=== PATIENT | male | born 1935 | race Caucasian/White ===

== ENCOUNTER → 2016-05-04 | Outpatient (CLI) | payer OTHER, BC ==
[~2016-05-04] MED LIST: ATOR10TA88 PO; CEPH500C PO; LISI5TAB3 PO; SILD1TAB11 PO; SULF500T36 PO
--- NOTE | 2016-05-04 13:49 | DIAGNOSTIC IMAGING REPORT ---
CHEST 2 VIEWS ROUTINE CLINICAL HISTORY: Persistent cough COMPARISON STUDY: No previous studies for comparison. FINDINGS: The chest has an emphysematous configuration. There is bibasal interstitial thickening. The heart is normal in size. There is no lobar consolidation. There is no overt failure.[ IMPRESSION: Bibasal interstitial thickening, likely chronic. No evidence of lobar consolidation Electronically signed by: Jerry Pérez M.D. 05/04/2016 1:48 PM Dictated Date/Time: 05/04/2016 1:47 PM
== END | disposition home or self-care (01) ==
LOC: C.LAB1850 13:34
PROVIDERS: ATTEND Family Medicine Hospice and Palliative Medicine
DX: R05 Cough (principal)

== ENCOUNTER → 2016-07-13 | Outpatient (CLI) | payer OTHER, BC ==
[~2016-07-13] MED LIST changes: +ATOR10TA82 PO; -ATOR10TA88 PO
== END | disposition home or self-care (01) ==
LOC: C.PATHSPEC 17:43
PROVIDERS: ATTEND Plastic Surgery
DX: C44.619 Basal cell carcinoma of skin of left upper limb, including shoulder (principal)

== ENCOUNTER → 2016-09-04 | Outpatient (CLI) | payer OTHER, BC ==
[2016-09-04 12:51] LABS: BASO % 0.4 %; BASO ABS # 0.04 K/uL (0-0.2); COMPLETE YES; EOS % 0.6 %; HEMATOCRIT 46.6 % (42-52); IG% 1.3 %; LYMPH % 24.4 %; LYMPH ABS # 2.63 K/uL (1.2-3.4); MEAN CELL VOLUME 92.5 fL (80-100); MEAN CORPUSCULAR HEMOGLOBIN 30.2 pg (25-34); MEAN CORPUSCULAR HGB CONC 32.6 g/dl (32-36); MEAN PLATELET VOLUME 8.5 fL (7.4-10.4); MONO % 14.7 %; NEUT % 58.6 %; PLATELET COUNT 337 K/uL (130-400); RED BLOOD COUNT 5.04 M/uL (4.7-6.1); WHITE BLOOD COUNT 10.78 K/uL (4.8-10.8)
[2016-09-04 14:37] LABS: LYME DISEASE AB IGM NEG (NEG)
[2016-09-04 14:45] LABS: LYME DISEASE AB IGG POS (NEG)
[2016-09-08 10:21] LABS: 18KDIGG BAND REACTIVE (NONREACTIVE); 23KDIGG BAND NONREACTIVE (NONREACTIVE); 23KDIGM BAND NONREACTIVE (NONREACTIVE); 28KDIGG BAND REACTIVE (NONREACTIVE); 30KDIGG BAND REACTIVE (NONREACTIVE); 39KDIGG BAND REACTIVE (NONREACTIVE); 39KDIGM BAND NONREACTIVE (NONREACTIVE); 41KDIGG BAND NONREACTIVE (NONREACTIVE); 41KDIGM BAND NONREACTIVE (NONREACTIVE); 45KDIGG BAND REACTIVE (NONREACTIVE); 58KDIGG BAND REACTIVE (NONREACTIVE); 66KDIGG BAND REACTIVE (NONREACTIVE); 93KDIGG BAND REACTIVE (NONREACTIVE)
== END ==
LOC: C.LAB1850 11:38
PROVIDERS: ATTEND Dermatology
DX: W57.XXXA Bitten or stung by nonvenomous insect and other nonvenomous arthropods, initial encounter (principal); X58.XXXA Exposure to other specified factors, initial encounter

== ENCOUNTER → 2016-12-07 | Outpatient (CLI) | payer OTHER, BC ==
[~2016-12-07] MED LIST changes: -ATOR10TA82 PO; +ATOR10TA88 PO
== END | disposition home or self-care (01) ==
LOC: C.MAMM 11:03
PROVIDERS: ATTEND Family Medicine
DX: M85.9 Disorder of bone density and structure, unspecified (principal)

== ENCOUNTER → 2017-03-02 | Outpatient (CLI) | payer OTHER, BC ==
[~2017-03-02] MED LIST changes: +ATOR10TA82 PO; -ATOR10TA88 PO
--- NOTE | 2017-03-02 10:26 | DIAGNOSTIC IMAGING REPORT ---
(RENAL)RETROPERITON COMP HISTORY: Renal insufficiency CHRONIC KIDNEY DISEASE COMPARISON: None. FINDINGS: Right kidney: Maximum dimension 10.8 cm. No evidence for hydronephrosis Normal corticomedullary differentiation and cortical thickness. Left kidney: Maximum dimension 9.6 cm. No evidence for hydronephrosis. Normal corticomedullary differentiation and cortical thickness. Bladder: No bladder wall thickening. The bilateral ureteral jets were identified. IMPRESSION: Normal renal ultrasound. The above report was generated using voice recognition software. It may contain grammatical, syntax or spelling errors. Electronically signed by: Elmo Levin M.D. 03/02/2017 10:25 AM Dictated Date/Time: 03/02/2017 10:24 AM
== END | disposition home or self-care (01) ==
LOC: C.ULTR 09:56
PROVIDERS: ATTEND Family Medicine
DX: N18.9 Chronic kidney disease, unspecified (principal)

== ENCOUNTER 2023-09-10 12:59 | Inpatient (IN) ==
--- NOTE | 2023-09-10 13:19 | Emergency Department Note ---
Impression & Plan Closed fracture of left superior pubic ramus, Fall ED Provider Note NAME: GAGE COBIAN AGE: 88 SEX: M : 1935 ARRIVES VIA: Ambulance INFORMANT: Patient, EMS, the patient's daughter ED PROVIDER(S): Oracio Paris DO CHIEF COMPLAINT: Hip pain HPI: The patient is an 88-year-old male who presented to the emergency department for an evaluation after a fall over the weekend. He was seen in our facility initially. He was diagnosed with a superior ramus fracture of his left hemipelvis. He has been unable to walk at home. Has been taking the pain medication with only minimal relief of his symptoms. His daughter called 911 today concerned that he was not doing well at home and wanted him to be evaluated for possible placement and rehab. The patient denies having any head injury or headache. He denies having any neck pain or back pain. The patient was not seen by his family doctor for the symptoms. ROS: See above HPI for pertinent positives & negatives. A total of 10 systems reviewed and were otherwise negative. PAST MEDICAL HISTORY: See Below PAST SURGICAL HISTORY: See Below FAMILY HISTORY: See Below SOCIAL HISTORY: See Below HOME MEDICATIONS: See Below ALLERGIES: See Below VITALS: See Below PHYSICAL EXAMINATION: GENERAL: The patient is awake and alert. He is very anxious and appears to be uncomfortable. EYES: The conjunctivae are clear. The pupils are round and reactive. EARS, NOSE, MOUTH AND THROAT: The nose is without any evidence of any deformity. NECK: The neck is nontender and supple. RESPIRATORY: Normal respiratory effort is noted there is no evidence of wheezing rhonchi or rales CARDIOVASCULAR: Regular rate and rhythm noted there no murmurs rubs or gallops normal S1 normal S2. GASTROINTESTINAL: The abdomen is soft. Abdomen is nontender. BACK: No midline tenderness or or step-off noted range of motion in flexion extension as well as rotation no signs of muscle spasm noted MUSCULOSKELETAL/EXTREMITIES: There is no shortening of either lower extremity. There is no external rotation. Patient does resist range of motion testing of the left hip. SKIN: There is no obvious evidence of any rash. There are no petechiae, pallor or cyanosis noted. Pulses are symmetric in both feet. NEUROLOGIC: Patient is awake alert and oriented x3 MEDICAL DECISION MAKING: The patient is an 88-year-old male who presented to the emergency department for an evaluation of left hip pain. The patient was seen in our facility recently for similar complaints. He had a fall and suffered a left superior ramus fracture. The patient was not able to ambulating with pain medication at home. He was brought to the emergency department by ambulance. The family was concerned and felt that he might require inpatient management and referral to rehab. I discussed the patient's laboratory and radiographic studies with him and his family member. There does not appear to be much change in the previously noted pubic rami fracture. I discussed his condition with the on- call [facility] hospitalist. They have agreed to evaluate the patient in the emergency department for further management and disposition. Triage Nursing notes reviewed. Prior medical records reviewed Vital Signs: reviewed and remarkable for no significant abnormalities Differential diagnosis: Fracture, subluxation, dislocation, contusion, ligamentous injury, neurovascular, compartment syndrome, rhabdomyolysis, as well as other pathologies. ER treatment provided: See below Diagnostics interpreted by me: ECG: EKG was obtained in the emergency department. My interpretation is normal sinus rhythm at 98 bpm. PVCs were noted. There is no acute ST segment abnormalities noted. No previous tracing was available. Cardiac Monitoring: An order was placed for continuous cardiac monitoring. The monitor shows a rate of 72 bpm with sinus rhythm. Laboratory studies: As stated above and show below. Imaging studies: See below. Radiographic imaging was reviewed by myself Consultation(s): I discussed this case with Dr. Gaona who is on-call for the [facility] group. Past Med/Surg History Problem List (Updated 09/10/23 @ 18:51 by Oracio Paris DO) Fall (Acute) Closed fracture of left superior pubic ramus (Acute) Alcohol use Elevated troponin Ambulatory dysfunction Closed fracture of pubic ramus (Acute) Pyloric stenosis High cholesterol High blood pressure Prostate cancer screening Benign localized prostatic hyperplasia with lower urinary tract symptoms (LUTS) Neoplasm of uncertain behavior of skin (Acute) Eustachian tube dysfunction (Acute) Hearing loss (Acute) Impotence, organic (Acute) Laryngopharyngeal reflux (Acute) Left inguinal hernia (Acute) Nocturia (Acute) Medical History 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 History of basal cell carcinoma Lyme disease Surgical History Hx of tonsillectomy S/P gastric surgery Family History Father Kidney stones Mother Breast cancer Other Cardiac disorder Diabetes Social History Smoking Status: Smoker, status unknown packs per day: 0.5; Hx Alcohol Use: Yes Alcohol type: beer and wine Alcohol Intake Frequency: 4 or More x per/Week Hx Substance Use: No Preferred Language: Cymraes marital status: current occupational status: retired How many Children do You have: 3 Feels Safe at Home: Yes during the past year weight has: remained stable Allergies Allergies Allergy/AdvReac Type Severity Reaction Status Date / Time Sulfa (Sulfonamide Allergy Unknown CAN'T Verified 09/10/23 16:34 Antibiotics) REMEMBER Asacol Allergy Intermediate MOUTH Uncoded 09/10/23 16:34 ULCERATED Home Meds Home Medications Medication Instructions Recorded Confirmed omeprazole 20 mg capsule,delayed 20 mg PO DAILY 12/20/18 09/10/23 release melatonin 5 mg capsule 5 mg PO HS PRN Sleep 10/18/21 09/10/23 rosuvastatin 20 mg tablet 20 mg PO DAILY 10/18/21 09/10/23 cholecalciferol (vitamin D3) 25 0 mcg PO DAILY 09/10/23 09/10/23 mcg (1,000 unit) capsule (Vitamin D3) cyanocobalamin (vitamin B-12) 1,000 mcg PO DAILY 09/10/23 09/10/23 1,000 mcg tablet (Vitamin B-12) thiamine HCl (vitamin B1) 100 mg 100 mg PO DAILY 09/10/23 09/10/23 tablet (Vitamin B-1) vit C 250 mg-vit E 90 mg-zinc 40 1 tab PO BID 09/10/23 09/10/23 mg-copper 1 [id number]-nirulk capsule (PreserVision AREDS-2) Previous Rx's Medication Instructions Recorded silodosin 8 mg capsule 8 mg PO DAILY #90 caps 06/22/23 tadalafil 5 mg tablet 20 mg (4 x 5 mg) PO DAILY PRN 06/22/23 sexual activity #30 tabs oxycodone 5 mg tablet 5 mg PO Q8H PRN pain #31 tabs 09/08/23 Results & Data (ED) Vital Signs Vital Signs - 24 hr 09/10/23 13:02 09/10/23 13:06 09/10/23 13:12 Temperature 36.6 C Temperature Source Oral Pulse Rate 97 H 97 H 93 H Pulse Rate [Apical] Pulse Rhythm Irregular Respiratory Rate 16 16 Respiratory Depth Normal Blood Pressure 132/72 Blood Pressure [Left Arm] Blood Pressure Mean 92 Blood Pressure Mean [Left Arm] Pulse Oximetry 92 90 Oxygen Delivery Method Room Air Room Air Sepsis Recent Fever Within 48 Hours No Sepsis New/Unexplained Change in Mental Status No Sepsis Action Taken by Nursing No Action Required 09/10/23 14:51 Temperature Temperature Source Pulse Rate Pulse Rate [Apical] 72 Pulse Rhythm Respiratory Rate 14 Respiratory Depth Blood Pressure Blood Pressure [Left Arm] 132/72 Blood Pressure Mean Blood Pressure Mean [Left Arm] 92 Pulse Oximetry 97 Oxygen Delivery Method Room Air Sepsis Recent Fever Within 48 Hours Sepsis New/Unexplained Change in Mental Status Sepsis Action Taken by [facility] Medications Current Medication List: was personally reviewed by me Laboratory Data Attestation: I reviewed the patient's lab results. 09/10/23 13:08 09/10/23 13:08 Lab Results 09/10/23 09/10/23 Range/Units 13:08 15:38 WBC 12.13 H (4.8-10.8) K/ul RBC 3.91 L (4.70-6.10) M/uL Hgb 12.2 L (14.0-18.0) g/dl Hct 36.6 L (42.0-52.0) % MCV 93.6 (80.0-100.0) fL MCH 31.2 (25.0-34.0) pg MCHC 33.3 (32.0-36.0) g/dL RDW Std Deviation 44.2 (36.4-46.3) fL RDW Coeff of Maria Elena 13.0 (11.5-14.5) % Plt Count 206 (130-400) K/uL MPV 8.6 L (9.4-12.4) fL Immature Gran % (Auto) 2.3 % Neut % (Auto) 70.5 % Lymph % (Auto) 15.6 % [place] % (Auto) 11.1 % Eos % (Auto) 0.2 % Baso % (Auto) 0.3 % Neut # (Auto) 8.55 H (1.40-6.50) K/uL Lymph # (Auto) 1.89 (1.20-3.40) K/uL [place] # (Auto) 1.35 H (0.11-0.59) K/uL Eos # (Auto) 0.02 (0.00-0.50) K/uL Baso # (Auto) 0.04 (0.00-0.20) K/uL Immature Gran # (Auto) 0.28 H (0.01-0.20) K/uL PT 11.6 (9.0-12.0) Seconds INR 1.1 (0.9-1.1) APTT 29 (21-31) Seconds PTT Ratio 1.1 Sodium 134 L (136-145) mmol/L Potassium 4.0 (3.5-5.1) mmol/L Chloride 100 (98-107) mmol/L Carbon Dioxide 27 (21-32) mmol/L Anion Gap 7 (3-11) BUN 20 (6-23) mg/dl Creatinine 1.27 (0.6-1.4) mg/dl Est Cr Clr Drug Dosing 41.3 ml/min Est GFR ( Amer) 58.9 ml/min Est GFR (Non-Af Amer) 50.8 ml/min BUN/Creatinine Ratio 15.7 (10-20) Glucose 139 H (70-99(Fasting)) mg/dl Calcium 9.2 (8.6-10.3) mg/dl Total Bilirubin 0.9 (0.2-1.0) mg/dl AST 31 (13-39) U/L ALT 27 (7-52) U/L Alkaline Phosphatase 53 (34-104) U/L Troponin I High Sens 27.4 H 26.1 H (0-20) pg/ml Total Protein 7.2 (6.0-8.3) gm/dl Albumin 3.9 (3.4-5.0) gm/dl Globulin 3.3 (2.5-4.0) gm/dl Albumin/Globulin Ratio 1.2 (0.9-2) Lipase 9 L (11-82) U/L Administered Medications Discontinued Medications Morphine Sulfate (Morphine Sulfate 4 Mg/Ml 1 Ml Carp\Vial) 4 mg IV NOW STA Stop: 09/10/23 13:06 Last Admin: 09/10/23 13:24 Dose: 4 mg Documented By: KV Ondansetron HCl (Ondansetron Inj 2 Mg/Ml 2 Ml Vial) 4 mg IV NOW STA Stop: 09/10/23 13:06 Last Admin: 09/10/23 13:24 Dose: 4 mg Documented By: KV Imaging Data Attestation: I personally reviewed and interpreted this imaging study as follows: My Impression: 1 view chest x-ray was obtained in the emergency department. My interpretation is no free air or definite infiltrate, final report below. X-ray of the left hip and pelvis was obtained in the emergency department. My interpretation is superior pubic ramus fracture, no other definite fracture noted, final report below. Radiologist's Impression: Chest X-Ray 09/10/23 13:05 XR chest 1V portable CLINICAL HISTORY: Chest pain, nonspecific TECHNIQUE: Single frontal radiograph of the chest was obtained. Comparison: None available at the time of this dictation. FINDINGS: No lines and tubes are seen. Cardiomegaly is noted. The aortic arch is calcified. Prominence and cephalization of the vasculature is seen. No evidence of pleural effusion or pneumothorax. IMPRESSION: Cardiomegaly and mild pulmonary edema. ACT 112: Negative or not required by law. Electronically signed by: Refugio Warner M.D. 09/10/2023 2:34 PM Hip/Pelvis X-Ray 09/10/23 13:05 XR hip LT 2V w pelvis HISTORY: 88 years-old Male fall acute pelvic pain status post fall COMPARISON: Left femur radiographs 09/08/2023 TECHNIQUE: AP view of the pelvis with 2 views of left hip FINDINGS: Moderate osteoarthritis of the hips. Demineralized appearance of the bones. Moderate degeneration of the SI joints. Acute comminuted fractures of the left superior pubic ramus demonstrate displacement measuring up to 8 mm. This is unchanged. Acute mildly displaced left inferior pubic ramus fracture was not appreciated on the prior study. No additional acute fracture or dislocation identified. IMPRESSION: Acute mildly displaced left pelvic ring fractures. The inferior pubic ring fracture was not clearly seen on the prior study. ACT 112: Negative or not required by law. The above report was generated using voice recognition software. It may contain grammatical, syntax or spelling errors. Electronically signed by: Bennie Paniagua M.D. 09/10/2023 2:[address] 09/10/23 15:46 CT SCAN OF THE CERVICAL SPINE CLINICAL HISTORY: Fall. COMPARISON STUDY: Cervical spine radiographs dated 10/06/2015. TECHNIQUE: CT scan of the cervical spine is performed from the skull base to the upper thoracic spine. Images are reviewed in the axial, sagittal, and coronal planes. IV contrast was not administered for this examination. A dose lowering technique was utilized adhering to the principles of ALARA. FINDINGS: Skeletal structures: The skeletal structures are osteopenic. There is no evidence of fracture or subluxation involving the cervical spine. Vertebral body height is maintained. There is minimal anterolisthesis at C3-C4, C4-C5, and C7- T1. Alignment is otherwise preserved. There is straightening of the cervical lordosis. Anterior osteophytes are seen throughout. The odontoid process and lateral masses are intact. The atlantoaxial articulation is preserved noting advanced productive degenerative change. The spinous processes appear intact. There is moderate multilevel cervical spondylosis. Uncovertebral and facet arthropathy contribute to neural foraminal narrowing at several levels. Intervertebral discs: There is moderate to severe disc space narrowing at C5-C6 and C6-C7 with associated endplate sclerosis. Mild narrowing is seen at the remaining cervical levels. Central canal: Posterior disc osteophyte complexes at C5-C6 and C6-C7 likely contribute to acquired compromise of the central canal. Soft tissues: The prevertebral and paraspinous soft tissues are within normal limits. There is atherosclerotic calcification of the carotid bulbs. Calvarium: The visualized calvarium at the skull base appears intact. Brain parenchyma: Partially visualized brain parenchyma at the skull base is within normal limits. Sinuses and mastoids: There is trace mucosal thickening within the maxillary antra. The mastoid air cells are well pneumatized. Cerumen is noted in the right external auditory canal. Lung apices: Clear as visualized. IMPRESSION: 1. There is no evidence of cervical spine fracture or subluxation. 2. Osteopenia and spondylotic change as above. ACT 112: Negative or not required by law. Electronically signed by: Young Batista M.D. 09/10/2023 5:[address] 09/10/23 15:46 CT SCAN OF THE BRAIN WITHOUT IV CONTRAST CLINICAL HISTORY: Fall. COMPARISON STUDY: MRI of the brain dated 05/28/2013. TECHNIQUE: Unenhanced axial CT scan of the brain is performed from the vertex to the skull base. A dose lowering technique was utilized adhering to the principles of ALARA. FINDINGS: Brain parenchyma: There is age-related involutional change noting moderate subcortical and periventricular microangiopathic disease. There is no hemorrhage, mass effect, or evidence of acute territorial ischemia by CT criteria. Phan-white matter differentiation is preserved. No extra-axial fluid collection is seen. Ventricles, sulci, cisterns: Prominent secondary to involutional change. Intracranial vasculature: There is atherosclerotic calcification of the cavernous carotid and vertebral artery. Calvarium: The skeletal structures are osteopenic. No depressed calvarial fracture is seen. Sinuses and mastoids: The visualized paranasal sinuses are clear. The mastoid air cells are well pneumatized. Orbits: The bony orbits are grossly intact. There are bilateral ocular lens implants. IMPRESSION: There is no hemorrhage, mass effect, or evidence of acute territorial ischemia by CT criteria. ACT 112: Negative or not required by law. Electronically signed by: Young Batista M.D. 09/10/2023 5:[address] 09/10/23 15:46 CT SCAN OF THE PELVIS WITHOUT IV CONTRAST; CT SCAN OF THE LEFT HIP WITHOUT IV CONTRAST CLINICAL HISTORY: Fall. Pelvic pain. Left hip pain. COMPARISON STUDY: Radiographs of the left hip and bony pelvis dated 09/10/2023. Pelvic CT dated 01/22/2023. TECHNIQUE: CT scan of the pelvis was performed from the pelvic inlet to the proximal femora and CT scan of the left hip was performed from the bony pelvis to the femoral shaft. Images for both examinations are reviewed in the axial, sagittal, and coronal planes. IV contrast was not administered for these examinations. A dose lowering technique was utilized adhering to the principles of ALARA. FINDINGS: The skeletal structures are osteopenic. Again seen are acute, comminuted, and mildly displaced fracture of the left superior and inferior pubic rami with surrounding hemorrhage. The superior pubic rami fracture involves the anterior wall of the left acetabulum. There is likely a subtle nondisplaced fracture of the left sacral ala. The remainder of the bony pelvis appears intact. The proximal femora are maintained. There is no avascular necrosis of the femoral heads. No lytic or blastic lesion is seen. Spondylotic change is noted in the lower lumbar spine. Intramuscular hemorrhage is seen within the left obturator internus. There is trace intrapelvic extraperitoneal hemorrhage. There is also trace retroperitoneal hemorrhage along the anterior aspect of the psoas muscle. The prostate gland is enlarged and heterogeneous. The bladder is distended, and the wall is thickened/trabeculated indicating chronic outlet obstruction. There are bilateral fat-containing groin hernias. 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 Imaged portions of the bowel shows no evidence of obstruction. There is diverticulosis of the imaged colon without CT evidence of acute diverticulitis. No intraperitoneal free air or ascites is seen in the pelvis. IMPRESSION: 1. Again seen are comminuted left pubic rami fractures as above. The superior pubic rami fracture involves the anterior wall of the acetabulum. 2. There is likely a subtle nondisplaced fracture of the left sacral ala. 3. The proximal femora appear intact. 4. There is hemorrhage around the fracture sites, as well as intramuscular hemorrhage within the left obturator internus. 5. There is trace retroperitoneal hemorrhage seen along the anterior aspect of the left psoas muscle. 6. 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 This was better assessed on the 01/22/2023 CT angiogram. 7. Additional findings as above. ACT 112: Negative or not required by law. Dictated: 09/10/2023 5:27 PM Transcribed: 09/10/2023 6:09 PM Theo [id number] Ifrah [id number] Electronically signed by: Young Batista M.D. 09/10/2023 6:42 PM Discharge Plan Visit Data Chief Complaint: Hip Pain Stated Complaint: HIP PAIN ED Provider: Oracio Paris Discharge Problem: Closed fracture of left superior pubic ramus, Fall Patient Disposition: Admitted As Inpatient Discharge Instructions Interventions: ED Discharge Assessment Last Done: 09/10/23 18:17 Forms Stand Alone Forms: Organizer Prescriptions Prescriptions: No Action tadalafil 5 mg tablet 20 mg PO DAILY PRN (Reason: sexual activity) Qty: 30 11RF silodosin 8 mg capsule 8 mg PO DAILY Qty: 90 3RF Rx Instructions: must administer with a meal/food omeprazole 20 mg capsule,delayed release(DR/EC) 20 mg PO DAILY rosuvastatin 20 mg tablet 20 mg PO DAILY melatonin 5 mg capsule 5 mg PO HS PRN (Reason: Sleep) oxycodone 5 mg tablet 5 mg PO Q8H PRN (Reason: pain) Qty: 31 0RF cyanocobalamin (vitamin B-12) [Vitamin B-12] 1,000 mcg Tablet 1,000 mcg PO DAILY thiamine HCl (vitamin B1) [Vitamin B-1] 100 mg Tablet 100 mg PO DAILY cholecalciferol (vitamin D3) [Vitamin D3] 25 mcg (1,000 unit) Capsule 0 mcg PO DAILY Rx Instructions: PT UNSURE OF STRENGTH PreserVision AREDS-2 250-90-40-1 mg Capsule 1 tab PO BID Referrals Referrals: Thanh Melton MD [Primary Care Provider] - Discharge Problem: Closed fracture of left superior pubic ramus Qualifiers: Encounter type: subsequent encounter Fracture healing: with routine healing Q ualified Code(s): S32.512D - Fracture of superior rim of left pubis, subsequent encounter for fracture with routine healing Fall Qualifiers: Encounter type: initial encounter Qualified Code(s): W19.XXXA - Unspecified fall, initial encounter
[2023-09-10] MEDS: ONDANSETRON INJ 2 MG/ML 2 ML VIAL IV STA (13:24)
[2023-09-10] MEDS: MoRPHine SULFATE 4 MG/ML 1 ML CARP\\VIAL IV STA (13:24)
[2023-09-10 13:28] LABS: Basophils # (auto) 0.04 K/uL (0.00-0.20); Basophils % (auto) 0.3 %; Eosinophils # (auto) 0.02 K/uL (0.00-0.50); Eosinophils % (auto) 0.2 %; Hematocrit (blood only) 36.6 % (42.0-52.0); Hemoglobin 12.2 g/dl (14.0-18.0); Immature Granulocytes # (auto) 0.28 K/uL (0.01-0.20); Immature Granulocytes % (auto) 2.3 %; Lymphocytes # (auto) 1.89 K/uL (1.20-3.40); Lymphocytes % (auto) 15.6 %; Mean Corpuscular Hemoglobin 31.2 pg (25.0-34.0); Mean Corpuscular Hgb Conc 33.3 g/dL (32.0-36.0); Mean Corpuscular Volume 93.6 fL (80.0-100.0); Mean Platelet Volume 8.6 fL (9.4-12.4); Monocytes # (auto) 1.35 K/uL (0.11-0.59); Monocytes % (auto) 11.1 %; Neutrophils # (auto) 8.55 K/uL (1.40-6.50); Neutrophils % (auto) 70.5 %; Platelet Count 206 K/uL (130-400); RDW Standard Deviation 44.2 fL (36.4-46.3); Red Blood Count 3.91 M/uL (4.70-6.10); White Blood Count 12.13 K/ul (4.8-10.8)
[2023-09-10 13:44] LABS: Albumin Globulin Ratio 1.2 (0.9-2); Albumin Level 3.9 gm/dl (3.4-5.0); BUN Creatinine Ratio 15.7 (10-20); Bilirubin,Total 0.9 mg/dl (0.2-1.0); Calcium 9.2 mg/dl (8.6-10.3); Creatinine Clr Calc Pharmacy 41.3 ml/min; Est GFR (African American) 58.9 ml/min; Est GFR (Non-African American) 50.8 ml/min; Globulin 3.3 gm/dl (2.5-4.0); Total Protein 7.2 gm/dl (6.0-8.3)
[2023-09-10 13:48] LABS: Troponin I High Sensitivity 27.4 pg/ml (0-20)
[2023-09-10 14:00] LABS: INR 1.1 (0.9-1.1); Partial Thromboplastin Ratio 1.1; Partial Thromboplastin Time 29 Seconds (21-31); Prothrombin Time 11.6 Seconds (9.0-12.0)
--- NOTE | 2023-09-10 14:32 | XRay Report ---
XR hip LT 2V w pelvis HISTORY: 88 years-old Male fall acute pelvic pain status post fall COMPARISON: Left femur radiographs 09/08/2023 TECHNIQUE: AP view of the pelvis with 2 views of left hip FINDINGS: Moderate osteoarthritis of the hips. Demineralized appearance of the bones. Moderate degeneration of the SI joints. Acute comminuted fractures of the left superior pubic ramus demonstrate displacement m easuring up to 8 mm. This is unchanged. Acute mildly displaced left inferior pubic ramus fracture was not appreciated on the prior study. No additional acute fracture or dislocation identified. IMPRESSION: Acute mildly displaced left pelvic ring fractures. The inferior pubic ring fracture was n ot clearly seen on the prior study. ACT 112: Negative or not required by law. The above report was generated using voice recognition software. It may contain grammatical, syntax o r spelling errors. Electronically signed by: Bennie Paniagua M.D. 09/10/2023 2:29 PM
--- NOTE | 2023-09-10 14:36 | XRay Report ---
XR chest 1V portable CLINICAL HISTORY: Chest pain, nonspecific TECHNIQUE: Single frontal radiograph of the chest was obtained. Comparison: None available at the time of this dictation. FINDINGS: No lines and tubes are seen. Cardiomegaly is noted. The aortic arch is calcified. Prominence and ceph alization of the vasculature is seen. No evidence of pleural effusion or pneumothorax. IMPRESSION: Cardiomegaly and mild pulmonary edema. ACT 112: Negative or not required by law. Electronically signed by: Refugio Warner M.D. 09/10/2023 2:34 PM
--- NOTE | 2023-09-10 15:03 | History & Physical Report ---
Date of Service September 10, 2023 Assessment & Plan (1) Closed fracture of pubic ramus: Plan: Patient fell backwards down stairs (approximately 4 steps) while ascending on 09/07 Worsening left hip pain with movement since then Hip/pelvic x-ray revealed acute mildly displaced left pelvic ring fractures Head, C-spine, left hip, lumbar spine, and pelvic CTs ordered, pending Will defer chemical DVT PPx until imaging comes back Acetaminophen as needed for pain 13 Dilaudid IV q4h as needed for breakthrough pain Orthopedics evaluation appreciated A.m. CBC, BMP (2) Ambulatory dysfunction: Plan: PT/OT evaluations appreciated; left nonweightbearing Fall precautions Case management consulted for rehab upon discharge (3) Elevated troponin: Plan: Troponin 27.4 on arrival, repeat pending Clinically, patient denies chest pain, SOB, or pleuritic CP Continuous telemetry monitoring (4) Alcohol use: Plan: Patient reports that he drinks 4+ drinks daily Denies history of alcohol withdrawal or seizures AWSS at risk protocol with Ativan as needed (5) High cholesterol: Plan: Continue rosuvastatin Plan Disposition: Admit to [facility] DNR/DNI Regular diet DVT PPx: Will defer until CT imaging comes back History of Present Illness Chief Complaint: Left hip pain, ambulatory dysfunction Primary Care Provider: Thanh Melton MD Orlin is an 88-year-old male with PMH of nocturia, BPH, pyloric stenosis, HTN, and high cholesterol. He presented via EMS for intractable pain for ambulatory dysfunction on 09/09. He initially fell backwards while ascending a flight of steps on his back deck on 09/07. Patient fell backwards down approximately 4 steps. He denies head strike, LOC. He struck his left elbow, hip, and knee. He reports he is not on blood thinners. He endorses 10/10 pain with all mov ements in the left hip. Pain radiates down the left leg to the knee. He is required help with sitting up, standing, and getting out of bed; has difficulty getting to the bathroom. Patient has been taking oxycodone 5 mg every 8 hours for the pain. He characterizes the pain as a sharp, stabbing pain. He denies any pain on his right side. No prior injuries to the left hip, or surgery/hardware placement. He has not had a fall since 09/07. Patient does not use ambulatory assist devices at baseline, but has been using a walker/wheelchair over the past couple days; as well as a commode for the bathroom. Patient's daughter has been living with him for the past couple days to assist with the pelvic fracture. Patient is a former tobacco cigarette smoker but quit in 1980. He does endorse frequent alcohol use; 4 drinks daily; 1 beer with lunch and Chardonnay/play measures throughout the day. He denies history of alcohol withdrawal or seizures. Patient reports he took all of his regular morning medications today; no recent change in medications. Patient's vitals are stable at time of admission. ED course: Morphine sulfate 4 mg IV Zofran 4 mg IV ROS: Patient endorses lightheadedness with standing (ongoing x 1 year), constipation, frequent urination (which patient attribute to enlarged prostate), left hip pain rad down to the knee, Patient denies fever, chills, night-sweats, POE, changes in vision, chest pain, SOB, chest palpitations, pleuritic CP, cough, abdominal pain, N/V/D, change in urinary/bowel habits, saddle anesthesia, melena, blood in the urine/stool, or numbness/tingling in the left lower leg. Allergies Allergy/AdvReac Type Severity Reaction Status Date / Time Sulfa (Sulfonamide Allergy Unknown CAN'T Verified 09/10/23 16:34 Antibiotics) REMEMBER Asacol Allergy Intermediate MOUTH Uncoded 09/10/23 16:34 ULCERATED Home Medications Medication Instructions Recorded Confirmed Type omeprazole 20 mg capsule,delayed 20 mg PO DAILY 12/20/18 09/10/23 History release melatonin 5 mg capsule 5 mg PO HS PRN Sleep 10/18/21 09/10/23 History rosuvastatin 20 mg tablet 20 mg PO DAILY 10/18/21 09/10/23 History silodosin 8 mg capsule 8 mg PO DAILY #90 caps 06/22/23 09/10/23 Rx tadalafil 5 mg tablet 20 mg (4 x 5 mg) PO DAILY PRN 06/22/23 09/10/23 Rx sexual activity #30 tabs oxycodone 5 mg tablet 5 mg PO Q8H PRN pain #31 tabs 09/08/23 09/10/23 Rx cholecalciferol (vitamin D3) 25 0 mcg PO DAILY 09/10/23 09/10/23 History mcg (1,000 unit) capsule (Vitamin D3) cyanocobalamin (vitamin B-12) 1,000 mcg PO DAILY 09/10/23 09/10/23 History 1,000 mcg tablet (Vitamin B-12) thiamine HCl (vitamin B1) 100 mg 100 mg PO DAILY 09/10/23 09/10/23 History tablet (Vitamin B-1) vit C 250 mg-vit E 90 mg-zinc 40 1 tab PO BID 09/10/23 09/10/23 History mg-copper 1 [id number] capsule (PreserVision AREDS-2) Past Med/Surg History Problem List (Updated 09/10/23 @ 15:52 by Luis Win PA-C) Alcohol use Elevated troponin Ambulatory dysfunction Closed fracture of pubic ramus (Acute) Pyloric stenosis High cholesterol High blood pressure Prostate cancer screening Benign localized prostatic hyperplasia with lower urinary tract symptoms (LUTS) Neoplasm of uncertain behavior of skin (Acute) Eustachian tube dysfunction (Acute) Hearing loss (Acute) Impotence, organic (Acute) Laryngopharyngeal reflux (Acute) Left inguinal hernia (Acute) Nocturia (Acute) Medical History 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 History of basal cell carcinoma Lyme disease Surgical History Hx of tonsillectomy S/P gastric surgery Family History Father Kidney stones Mother Breast cancer Other Cardiac disorder Diabetes Social History Smoking Status: Smoker, status unknown packs per day: 0.5; Hx Alcohol Use: Yes Alcohol type: beer and wine Alcohol Intake Frequency: 4 or More x per/Week Hx Substance Use: No Preferred Language: [place] marital status: current occupational status: retired How many Children do You have: 3 Feels Safe at Home: Yes during the past year weight has: remained stable Review of Systems Review of Systems: See HPI above Physical Exam Physical Exam: General: no acute distress, but acute onset of physical pain with any movements of the left leg; pleasant affect; non-toxic appearing; cooperative; SpO2 97% on 1L NC HEENT: normocephalic, atraumatic; no scleral icterus; PERRLA; moist mucus membrane; vision and hearing intact Neck: supple; no lymphadenopathy; trachea midline Skin: warm, dry without signs of tenting; no cyanosis; superficial abrasion on the left knee and left elbow; no rashes or erythema noted CV: chest wall NTP; RRR; S1/S2 normal; no murmurs/rubs/gallops; pulses intact and symmetric at radial, DP, and PT Lungs: no acute respiratory distress; symmetrical chest wall expansion; clear breath sounds across all lung garvey w/o adventitious sounds; no wheezing ABD: Soft, NTP; BS present; no rebound/guarding; moderate distention and bloating MSK: no tics or fasciculations; patient demonstrates ability to bend the left elbow/supinate and pronate the wrist without difficulty (full active ROM); 5/5 scientific research associate strength bilaterally; pain when bending the left knee or lifting the left hip; left hip is NTP; no signs of bruising or active bleeding on the left hip; no edema noted in the LEs b/l; patient demonstrates ability to wiggle toes bilaterally Neuro: A&Ox3; normal mood and affect; fluent speech; no focal deficits; sensation grossly intact and symmetric in the LEs b/l assessed via light touch Results & Data Results & Data Vital Signs (Past 12 Hours) Vital Signs Temp Pulse Pulse Resp BP BP Pulse Ox 09/10/23 14:51 72 14 132/72 97 09/10/23 13:12 93 H 09/10/23 13:06 97 H 16 90 09/10/23 13:02 36.6 C 97 H 16 132/72 92 O2 Del Method 09/10/23 14:51 Room Air 09/10/23 13:12 09/10/23 13:06 Room Air 09/10/23 13:02 Room Air Laboratory Results Abnormal lab results 09/10/23 Range/Units 13:08 WBC 12.13 H (4.8-10.8) K/ul RBC 3.91 L (4.70-6.10) M/uL Hgb 12.2 L (14.0-18.0) g/dl Hct 36.6 L (42.0-52.0) % MPV 8.6 L (9.4-12.4) fL Neut # (Auto) 8.55 H (1.40-6.50) K/uL [place] # (Auto) 1.35 H (0.11-0.59) K/uL Immature Gran # (Auto) 0.28 H (0.01-0.20) K/uL Sodium 134 L (136-145) mmol/L Glucose 139 H (70-99(Fasting)) mg/dl Troponin I High Sens 27.4 H (0-20) pg/ml Lipase 9 L (11-82) U/L Diagnostic Findings Chest X-Ray 09/10/23 13:05 XR chest 1V portable CLINICAL HISTORY: Chest pain, nonspecific TECHNIQUE: Single frontal radiograph of the chest was obtained. Comparison: None available at the time of this dictation. FINDINGS: No lines and tubes are seen. Cardiomegaly is noted. The aortic arch is calcified. Prominence and cephalization of the vasculature is seen. No evidence of pleural effusion or pneumothorax. IMPRESSION: Cardiomegaly and mild pulmonary edema. ACT 112: Negative or not required by law. Electronically signed by: Refugio Warner M.D. 09/10/2023 2:34 PM Hip/Pelvis X-Ray 09/10/23 13:05 XR hip LT 2V w pelvis HISTORY: 88 years-old Male fall acute pelvic pain status post fall COMPARISON: Left femur radiographs 09/08/2023 TECHNIQUE: AP view of the pelvis with 2 views of left hip FINDINGS: Moderate osteoarthritis of the hips. Demineralized appearance of the bones. Moderate degeneration of the SI joints. Acute comminuted fractures of the left superior pubic ramus demonstrate displacement measuring up to 8 mm. This is unchanged. Acute mildly displaced left inferior pubic ramus fracture was not appreciated on the prior study. No additional acute fracture or dislocation identified. IMPRESSION: Acute mildly displaced left pelvic ring fractures. The inferior pubic ring fracture was not clearly seen on the prior study. ACT 112: Negative or not required by law. The above report was generated using voice recognition software. It may contain grammatical, syntax or spelling errors. Electronically signed by: Bennie Paniagua M.D. 09/10/2023 2:29 PM ECG Additional Comments: ECG revealed sinus rhythm with PACs at 98 bpm; QTc 434 No prior for comparison Code Status & VTE Plan Code Status DNR/DNI VTE Prophylaxis Plan VTE Prophylaxis will be ordered: Yes Supervising Physician Co-Signing Physician Notes I have personally seen, evaluated and examined the patient. I have also personally discussed the management of the patient with the resident physician/NOA and I agree with the exam findings documented in the history and physical examination and the documented assessment and plan unless otherwise stated below. Brief Exam: In general is a pleasant 88-year-old male is accompanied by his daughter at the time of my exam. He interacts appropriately pleasantly. He is alert and oriented x 3 at the time of my exam. HEENT: Normocephalic atraumatic. Heart: Is regular rate and rhythm. Faint 2 out of 6 systolic ejection murmur. This is best heard at the left sternal border. No ectopy or rub. Lungs: Clear bilaterally. Abdomen: Mildly protuberant soft nontender positive bowel sounds. Extremities: He has abrasion over the lateral left quintero region. He has got pretty exquisite tenderness of the left greater trochanter region. Discussed significant pain in the hip and groin region with any type of movement of the extremity. Peripheral pulses are palpable strong and equal x 4. He also admits to some low back discomfort. Assessment/plan: As described above. Will do CTs of the head, cervical spine, spine, pelvis, left hip. Consult orthopedics for the fractured pelvis but will see if there is another occult orthopedic injury on these CAT scan to make further recommendations pending testing results. PG Care Time/CCT Total # of Minutes Spent Total Time Spent with Patient: Total time spent is greater than 50% in coordination of care (as documented) at patient's floor/unit and/or counseling patient: Coding [place] [address] INT INP/OBS CARE 3/75MIN Patient Type Established Medical Decision Making Moderate Complexity Diagnoses Closed fracture of pubic ramus S32.592A Encounter type: initial encounter Laterality: left Ambulatory dysfunction R26.2 Elevated troponin R79.89 Alcohol use Z78.9 High cholesterol E78.00 (1) Closed fracture of pubic ramus Encounter type: initial encounter Laterality: left Qualified Code(s): S32.592A - Other specified fracture of left pubis, initial encounter for closed fracture
--- NOTE | 2023-09-10 17:20 | Electrocardiogram Report ---
Test Reason : Blood Pressure : / mmHG Vent. Rate : 098 BPM Atrial Rate : 098 BPM P-R Int : 150 ms QRS Dur : 080 ms QT Int : 356 ms P-R-T Axes : 031 003 -20 degrees QTc Int : 454 ms Sinus rhythm with Premature atrial complexes Cannot rule out Anterior infarct , age undetermined Abnormal ECG No previous ECGs available Confirmed by Oracio Gordillo ([id number]) on 09/10/2023 5:20:01 PM Referred By: Sami Melton Confirmed By:Oracio Gordillo
--- NOTE | 2023-09-10 17:24 | CT Scan Report ---
CT SCAN OF THE BRAIN WITHOUT IV CONTRAST CLINICAL HISTORY: Fall. COMPARISON STUDY: MRI of the brain dated 05/28/2013. TECHNIQUE: Unenhanced axial CT scan of the brain is performed from the vertex to the skull base. A do se lowering technique was utilized adhering to the principles of ALARA. FINDINGS: Brain parenchyma: There is age-related involutional change noting moderate subcortical and periventri cular microangiopathic disease. There is no hemorrhage, mass effect, or evidence of acute territorial ischemia by CT criteria. Phan-white matter differentiation is preserved. No extra-axial fluid collec tion is seen. Ventricles, sulci, cisterns: Prominent secondary to involutional change. Intracranial vasculature: There is atherosclerotic calcification of the cavernous carotid and vertebr al artery. Calvarium: The skeletal structures are osteopenic. No depressed calvarial fracture is seen. Sinuses and mastoids: The visualized paranasal sinuses are clear. The mastoid air cells are well pneu matized. Orbits: The bony orbits are grossly intact. There are bilateral ocular lens implants. IMPRESSION: There is no hemorrhage, mass effect, or evidence of acute territorial ischemia by CT vicky guzman. ACT 112: Negative or not required by law. Electronically signed by: Young Batista M.D. 09/10/2023 5:22 PM
--- NOTE | 2023-09-10 17:28 | CT Scan Report ---
CT SCAN OF THE CERVICAL SPINE CLINICAL HISTORY: Fall. COMPARISON STUDY: Cervical spine radiographs dated 10/06/2015. TECHNIQUE: CT scan of the cervical spine is performed from the skull base to the upper thoracic spine . Images are reviewed in the axial, sagittal, and coronal planes. IV contrast was not administered fo r this examination. A dose lowering technique was utilized adhering to the principles of ALARA. FINDINGS: Skeletal structures: The skeletal structures are osteopenic. There is no evidence of fracture or subl uxation involving the cervical spine. Vertebral body height is maintained. There is minimal anteroli sthesis at C3-C4, C4-C5, and C7-T1. Alignment is otherwise preserved. There is straightening of the c ervical lordosis. Anterior osteophytes are seen throughout. The odontoid process and lateral masses a re intact. The atlantoaxial articulation is preserved noting advanced productive degenerative change. The spinous processes appear intact. There is moderate multilevel cervical spondylosis. Uncovertebra l and facet arthropathy contribute to neural foraminal narrowing at several levels. Intervertebral discs: There is moderate to severe disc space narrowing at C5-C6 and C6-C7 with associ ated endplate sclerosis. Mild narrowing is seen at the remaining cervical levels. Central canal: Posterior disc osteophyte complexes at C5-C6 and C6-C7 likely contribute to acquired c ompromise of the central canal. Soft tissues: The prevertebral and paraspinous soft tissues are within normal limits. There is athero sclerotic calcification of the carotid bulbs. Calvarium: The visualized calvarium at the skull base appears intact. Brain parenchyma: Partially visualized brain parenchyma at the skull base is within normal limits. Sinuses and mastoids: There is trace mucosal thickening within the maxillary antra. The mastoid air c ells are well pneumatized. Cerumen is noted in the right external auditory canal. Lung apices: Clear as visualized. IMPRESSION: 1. There is no evidence of cervical spine fracture or subluxation. 2. Osteopenia and spondylotic change as above. ACT 112: Negative or not required by law. Electronically signed by: Young Batista M.D. 09/10/2023 5:26 PM
--- NOTE | 2023-09-10 18:44 | CT Scan Report ---
CT SCAN OF THE LUMBAR SPINE WITHOUT IV CONTRAST CLINICAL HISTORY: Recent fall. Known pelvic fractures. COMPARISON STUDY: Abdominal CT dated 01/22/2023. TECHNIQUE: CT scan of the lumbar spine was performed from the lower thoracic spine to the sacrum. Sarah ges are reviewed in the axial, sagittal, and coronal planes. IV contrast was not administered for thi s examination. A dose lowering technique was utilized adhering to the principles of ALARA. CT DOSE: 2761.1 mGy.cm FINDINGS: The skeletal structures are osteopenic. There is no evidence of acute fracture or malalignm ent involving the lumbar spine. Vertebral body height is maintained. There is minimal anterolisthesis at L5-S1. Alignment is otherwise preserved. Hyperlordosis is noted. Anterior and lateral marginal os teophytes are seen throughout. The transverse and spinous processes are intact. There is no spondylol ysis. No lytic or blastic lesion is seen. Facet arthropathy is noted in the lower lumbar region. Ther e is moderate disc space narrowing at L5-S1. Mild disc space narrowing is seen at the remaining lumba r levels. Posterior disc osteophyte complexes are noted at all lumbar levels. There is no CT evidence of high-grade central canal stenosis. There is likely a subtle nondisplaced fracture of the left sac ral ala. Degenerative sclerosis is noted in the sacroiliac joints. There is fatty atrophy of the para spinous musculature. Trace retroperitoneal hemorrhage is seen anterior to the distal left psoas muscl e. There is advanced atherosclerotic calcification of the abdominal aorta. 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 IMPRESSION: 1. There is no evidence of fracture or malalignment involving the lumbar spine. 2. Osteopenia and spondylotic change as above. 3. There is likely a subtle nondisplaced fracture of the left sacral ala. 4. Trace retroperitoneal hemorrhage is seen along the inferior aspect of the left psoas muscle. 5. 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 These were better a ssessed on the 01/22/2023 CT angiogram. ACT 112: Negative or not required by law. Dictated: 09/10/2023 5:38 PM Transcribed: 09/10/2023 6:01 PM Theo [id number] KAVEH_Rishi [id number] Electronically signed by: Young Batista M.D. 09/10/2023 6:43 PM
--- NOTE | 2023-09-10 18:44 | CT Scan Report ---
CT SCAN OF THE PELVIS WITHOUT IV CONTRAST; CT SCAN OF THE LEFT HIP WITHOUT IV CONTRAST CLINICAL HISTORY: Fall. Pelvic pain. Left hip pain. COMPARISON STUDY: Radiographs of the left hip and bony pelvis dated 09/10/2023. Pelvic CT dated 2022. TECHNIQUE: CT scan of the pelvis was performed from the pelvic inlet to the proximal femora and CT sc an of the left hip was performed from the bony pelvis to the femoral shaft. Images for both examinati ons are reviewed in the axial, sagittal, and coronal planes. IV contrast was not administered for the se examinations. A dose lowering technique was utilized adhering to the principles of ALARA. FINDINGS: The skeletal structures are osteopenic. Again seen are acute, comminuted, and mildly displa renée fracture of the left superior and inferior pubic rami with surrounding hemorrhage. The superior p ubic rami fracture involves the anterior wall of the left acetabulum. There is likely a subtle nondis placed fracture of the left sacral ala. The remainder of the bony pelvis appears intact. The proximal femora are maintained. There is no avascular necrosis of the femoral heads. No lytic or blastic lesi on is seen. Spondylotic change is noted in the lower lumbar spine. Intramuscular hemorrhage is seen w ithin the left obturator internus. There is trace intrapelvic extraperitoneal hemorrhage. There is al so trace retroperitoneal hemorrhage along the anterior aspect of the psoas muscle. The prostate gland is enlarged and heterogeneous. The bladder is distended, and the wall is thickened/trabeculated nickie cating chronic outlet obstruction. There are bilateral fat-containing groin hernias. A saccular aneur ysm of the distal abdominal aorta is partially visualized and measures up to 4.8 cm. Imaged portions of the bowel shows no evidence of obstruction. There is diverticulosis of the imaged colon without CT evidence of acute diverticulitis. No intraperitoneal free air or ascites is seen in the pelvis. IMPRESSION: 1. Again seen are comminuted left pubic rami fractures as above. The superior pubic rami fracture inv olves the anterior wall of the acetabulum. 2. There is likely a subtle nondisplaced fracture of the left sacral ala. 3. The proximal femora appear intact. 4. There is hemorrhage around the fracture sites, as well as intramuscular hemorrhage within the left obturator internus. 5. There is trace retroperitoneal hemorrhage seen along the anterior aspect of the left psoas muscle. 6. A saccular aneurysm of the distal abdominal aorta is partially visualized and measures up to 4.8 c m. This was better assessed on the 01/22/2023 CT angiogram. 7. Additional findings as above. ACT 112: Negative or not required by law. Dictated: 09/10/2023 5:27 PM Transcribed: 09/10/2023 6:09 PM Theo [id number] KAVEH_Rishi [id number] Electronically signed by: Young Batista M.D. 09/10/2023 6:42 PM
[2023-09-10] MEDS ORDERED: ACETAMINOPHEN 325 MG TAB PO PRN (20:22)
[2023-09-10] MEDS ORDERED: LORazepam 1 MG in SYRINGE 0.5 ML IV PRN (20:22)
[2023-09-10] MEDS ORDERED: ONDANSETRON INJ 2 MG/ML 2 ML VIAL IV PRN (20:22)
[2023-09-10] MEDS ORDERED: HYDROmorphone INJ 1 MG/ML SYRINGE IV PRN (20:22)
[2023-09-10 21:38] LABS: Hematocrit (blood only) 38.6 % (42.0-52.0); Hemoglobin 12.8 g/dl (14.0-18.0)
[2023-09-10 22:00] LABS: Appearance Urine Clear (Clear); Bacteria Urine Automated None Seen (None Seen); Bilirubin Urine Negative (Negative); Blood Urine Negative (Negative); Color Urine Yellow; Epithelial Cell Urine Auto 0-2 /hpf (0-2); Glucose Urine UA Negative (Negative); Ketones Urine Trace (Negative); Leukocyte Esterase Urine Negative (Negative); Nitrite Urine Negative (Negative); Protein Urine 1+ (Negative); Specific Gravity Urine 1.017 (1.000-1.030); Urobilinogen Urine Negative (Negative); WBC Urine Automated 0-5 /hpf (0-5); pH Urine 5.5 (4.5-7.5)
[2023-09-10] MEDS: ACETAMINOPHEN 1,000 MG/100 ML VIAL IV STA (22:47)
[2023-09-10] MEDS: MELATONIN 3 MG TAB PO PRN (22:47)
--- NOTE | 2023-09-11 07:17 | Orthopedic Consultation ---
Date of Consultation September 11, 2023 Assessment & Plan (1) Closed fracture of left superior pubic ramus: 88-year-old male who sustained a fall while going up steps, consulted in regards to a left pubic ramus fracture. X-rays and CT scan reviewed with patient as well as discussed with Dr. Romano, showing a comminuted left pubic rami fracture, involving the anterior wall of the acetabulum. Discussed care with patient, at this point he can weight-bear as tolerated with the assistance of a walker, will make arrangements for physical therapy to begin working with the patient. He does live with his , did discuss possible rehab placement versus nursing facility for assistance postoperatively. Patient will follow-up in the office with Dr. Romano in 12 to 14 days for repeat radiographs or sooner if he is having any issues. he otherwise has no questions or concerns. patient can call [phone] to schedule appt. (2) Fall: History of Present Illness Reason for Consultation: left pelvic ring fracture Attending Physician: Cat Cui MD History of Present Illness Orlin is a pleasant 88 year old male we are consulted in regarding left pelvic ring fracture. He states that he was walking up a few stairs and was holding on to the rail with his left arm, when he slipped and fell, landing on his left hip. he had immediate pain and was unable to put weight on his left leg. he denies hitting his head, LOC, denies any other injuries. he does have an abrasion over the lateral aspect of his left knee. denies any previous fractures to this area. Allergies Allergy/AdvReac Type Severity Reaction Status Date / Time Sulfa (Sulfonamide Allergy Unknown CAN'T Verified 09/10/23 16:34 Antibiotics) REMEMBER Asacol Allergy Intermediate MOUTH Uncoded 09/10/23 16:34 ULCERATED Home Medications Medication Instructions Recorded Confirmed Type omeprazole 20 mg capsule,delayed 20 mg PO DAILY 12/20/18 09/10/23 History release melatonin 5 mg capsule 5 mg PO HS PRN Sleep 10/18/21 09/10/23 History rosuvastatin 20 mg tablet 20 mg PO DAILY 10/18/21 09/10/23 History silodosin 8 mg capsule 8 mg PO DAILY #90 caps 06/22/23 09/10/23 Rx tadalafil 5 mg tablet 20 mg (4 x 5 mg) PO DAILY PRN 06/22/23 09/10/23 Rx sexual activity #30 tabs oxycodone 5 mg tablet 5 mg PO Q8H PRN pain #31 tabs 09/08/23 09/10/23 Rx cholecalciferol (vitamin D3) 25 0 mcg PO DAILY 09/10/23 09/10/23 History mcg (1,000 unit) capsule (Vitamin D3) cyanocobalamin (vitamin B-12) 1,000 mcg PO DAILY 09/10/23 09/10/23 History 1,000 mcg tablet (Vitamin B-12) thiamine HCl (vitamin B1) 100 mg 100 mg PO DAILY 09/10/23 09/10/23 History tablet (Vitamin B-1) vit C 250 mg-vit E 90 mg-zinc 40 1 tab PO BID 09/10/23 09/10/23 History mg-copper 1 qa-caneiv-yidbzw capsule (PreserVision AREDS-2) Patient History Medical History 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 History of basal cell carcinoma Lyme disease Surgical History Hx of tonsillectomy S/P gastric surgery Family History Father Kidney stones Mother Breast cancer Other Cardiac disorder Diabetes Social History Smoking Status: Former smoker packs per day: 0.5; Hx Alcohol Use: Yes Alcohol type: beer and wine Alcohol Intake Frequency: 4 or More x per/Week Hx Substance Use: No Preferred Language: Montenegrin Communication Ability: Effective Epidemiology Investigator Required: No Beliefs That Will Affect Care: None marital status: Current Living Situation: Spouse and Family current occupational status: retired How many Children do You have: 3 Other Information That Helps Us Care for You: No Feels Safe at Home: Yes Safety Concerns: Feels Safe At This Time during the past year weight has: remained stable Assistive Devices: Glasses and Walker Review of Systems Constitutional: no fever and no chills Respiratory: no cough and no dyspnea Cardiovascular: no chest pain, no dyspnea and no orthopnea Gastrointestinal: no abdominal pain, no nausea and no vomiting Physical Exam Physical Exam: Vital Signs Temp 36.6 C 09/11/23 07:12 Pulse 69 09/11/23 07:12 Resp 16 09/11/23 07:12 BP 118/68 09/11/23 07:12 Pulse Ox 97 09/11/23 07:12 O2 Del Method Room Air 09/11/23 07:12 Intake & Output 09/10/23 09/11/23 09/11/23 18:59 06:59 18:59 Intake Total 560 / 560 Output Total 850 / 850 Balance -290 / -290 Weight 79.2 kg 79.2 kg Intake: IV 100 / 100 Acetaminophen 1,000 mg In 100 100 / 100 ml @ 400 mls/h r IV NOW STA Rx#: [id number] Oral 460 / 460 Output: Urine Amount (Ca theter) 850 / 850 Haynes/Indwelli ng 850 / 850 Other: Weight Measureme nt Method Built in [facility] Built in [facility] Musculoskeletal: Pelvis and left lower extremity: No obvious deformities noted, he is neurovascularly intact distally, DP pulse palpable. Calf is soft and nontender. He has no discomfort with gentle log roll of the left leg, he does have pain with compression of the pelvis as well as some mild tenderness over the lateral aspect of his left hip. gentle knee ROM has no discomfort. does has a small abrasion noted along the lateral aspect of his knee as well. Results & Data Vital Signs (Past 12 Hours) Vital Signs Temp Pulse Pulse Resp BP Pulse Ox O2 Del Method 09/11/23 07:12 36.6 C 69 16 118/68 97 Room Air 09/11/23 07:00 67 09/11/23 03:42 36.5 C 75 18 125/73 93 Room Air 09/10/23 23:03 Room Air 09/10/23 22:14 36.8 C 88 18 164/81 H 94 Room Air 09/10/23 22:05 98 H 09/10/23 21:32 83 149/104 H 96 Room Air 09/10/23 20:57 O2 Del Method 09/11/23 07:12 09/11/23 07:00 09/11/23 03:42 09/10/23 23:03 09/10/23 22:14 09/10/23 22:05 09/10/23 21:32 09/10/23 20:57 Room Air Laboratory Results Laboratory Results WBC 12.13 K/ul (4.8-10.8) H 09/10/23 13:08 RBC 3.91 M/uL (4.70-6.10) L 09/10/23 13:08 Hgb 12.8 g/dl (14.0-18.0) L 09/10/23 21:10 Hct 38.6 % (42.0-52.0) L 09/10/23 21:10 MCV 93.6 fL (80.0-100.0) 09/10/23 13:08 MCH 31.2 pg (25.0-34.0) 09/10/23 13:08 MCHC 33.3 g/dL (32.0-36.0) 09/10/23 13:08 RDW Std Deviation 44.2 fL (36.4-46.3) 09/10/23 13:08 RDW Coeff of Maria Elena 13.0 % (11.5-14.5) 09/10/23 13:08 Plt Count 206 K/uL (130-400) 09/10/23 13:08 MPV 8.6 fL (9.4-12.4) L 09/10/23 13:08 Immature Gran % (Auto) 2.3 % 09/10/23 13:08 Neut % (Auto) 70.5 % 09/10/23 13:08 Lymph % (Auto) 15.6 % 09/10/23 13:08 Lincoln % (Auto) 11.1 % 09/10/23 13:08 Eos % (Auto) 0.2 % 09/10/23 13:08 Baso % (Auto) 0.3 % 09/10/23 13:08 Neut # (Auto) 8.55 K/uL (1.40-6.50) H 09/10/23 13:08 Lymph # (Auto) 1.89 K/uL (1.20-3.40) 09/10/23 13:08 Lincoln # (Auto) 1.35 K/uL (0.11-0.59) H 09/10/23 13:08 Eos # (Auto) 0.02 K/uL (0.00-0.50) 09/10/23 13:08 Baso # (Auto) 0.04 K/uL (0.00-0.20) 09/10/23 13:08 Immature Gran # (Auto) 0.28 K/uL (0.01-0.20) H 09/10/23 13:08 PT 11.6 Seconds (9.0-12.0) 09/10/23 13:08 INR 1.1 (0.9-1.1) 09/10/23 13:08 APTT 29 Seconds (21-31) 09/10/23 13:08 PTT Ratio 1.1 09/10/23 13:08 Sodium 134 mmol/L (136-145) L 09/10/23 13:08 Potassium 4.0 mmol/L (3.5-5.1) 09/10/23 13:08 Chloride 100 mmol/L (98-107) 09/10/23 13:08 Carbon Dioxide 27 mmol/L (21-32) 09/10/23 13:08 Anion Gap 7 (3-11) 09/10/23 13:08 BUN 20 mg/dl (6-23) 09/10/23 13:08 Creatinine 1.27 mg/dl (0.6-1.4) 09/10/23 13:08 Est Cr Clr Drug Dosing 41.3 ml/min 09/10/23 13:08 Est GFR ( Amer) 58.9 ml/min 09/10/23 13:08 Est GFR (Non-Af Amer) 50.8 ml/min 09/10/23 13:08 BUN/Creatinine Ratio 15.7 (10-20) 09/10/23 13:08 Glucose 139 mg/dl (70-99(Fasting)) H 09/10/23 13:08 Calcium 9.2 mg/dl (8.6-10.3) 09/10/23 13:08 Total Bilirubin 0.9 mg/dl (0.2-1.0) 09/10/23 13:08 AST 31 U/L (13-39) 09/10/23 13:08 ALT 27 U/L (7-52) 09/10/23 13:08 Alkaline Phosphatase 53 U/L (34-104) 09/10/23 13:08 Troponin I High Sens 26.1 pg/ml (0-20) H 09/10/23 15:38 Total Protein 7.2 gm/dl (6.0-8.3) 09/10/23 13:08 Albumin 3.9 gm/dl (3.4-5.0) 09/10/23 13:08 Globulin 3.3 gm/dl (2.5-4.0) 09/10/23 13:08 Albumin/Globulin Ratio 1.2 (0.9-2) 09/10/23 13:08 Lipase 9 U/L (11-82) L 09/10/23 13:08 Urine Color Yellow 09/10/23 21:30 Urine Appearance Clear (Clear) 09/10/23 21:30 Urine pH 5.5 (4.5-7.5) 09/10/23 21:30 Ur Specific Murray 1.017 (1.000-1.030) 09/10/23 21:30 Urine Protein 1+ (Negative) H 09/10/23 21:30 Urine Glucose (UA) Negative (Negative) 09/10/23 21:30 Urine Ketones Trace (Negative) H 09/10/23 21:30 Urine Blood Negative (Negative) 09/10/23 21:30 Urine Nitrite Negative (Negative) 09/10/23 21:30 Urine Bilirubin Negative (Negative) 09/10/23 21:30 Urine Urobilinogen Negative (Negative) 09/10/23 21:30 Ur Leukocyte Esterase Negative (Negative) 09/10/23 21:30 Urine WBC (Auto) 0-5 /hpf (0-5) 09/10/23 21:30 Urine RBC (Auto) 3-5 /hpf (0-2) H 09/10/23 21:30 U Hyaline Cast (Auto) 3-5 /lpf (0-2) H 09/10/23 21:30 U Epithel Cells (Auto) 0-2 /hpf (0-2) 09/10/23 21:30 Urine Bacteria (Auto) None Seen (None Seen) 09/10/23 21:30 Impressions Chest X-Ray 09/10/23 13:05 XR chest 1V portable CLINICAL HISTORY: Chest pain, nonspecific TECHNIQUE: Single frontal radiograph of the chest was obtained. Comparison: None available at the time of this dictation. FINDINGS: No lines and tubes are seen. Cardiomegaly is noted. The aortic arch is calcified. Prominence and cephalization of the vasculature is seen. No evidence of pleural effusion or pneumothorax. IMPRESSION: Cardiomegaly and mild pulmonary edema. ACT 112: Negative or not required by law. Electronically signed by: Refugio Warner M.D. 09/10/2023 2:34 PM Hip/Pelvis X-Ray 09/10/23 13:05 XR hip LT 2V w pelvis HISTORY: 88 years-old Male fall acute pelvic pain status post fall COMPARISON: Left femur radiographs 09/08/2023 TECHNIQUE: AP view of the pelvis with 2 views of left hip FINDINGS: Moderate osteoarthritis of the hips. Demineralized appearance of the bones. Moderate degeneration of the SI joints. Acute comminuted fractures of the left superior pubic ramus demonstrate displacement measuring up to 8 mm. This is unchanged. Acute mildly displaced left inferior pubic ramus fracture was not appreciated on the prior study. No additional acute fracture or dislocation identified. IMPRESSION: Acute mildly displaced left pelvic ring fractures. The inferior pubic ring fracture was not clearly seen on the prior study. ACT 112: Negative or not required by law. The above report was generated using voice recognition software. It may contain grammatical, syntax or spelling errors. Electronically signed by: Bennie Paniagua M.D. 09/10/2023 2:[address] 09/10/23 15:46 CT SCAN OF THE CERVICAL SPINE CLINICAL HISTORY: Fall. COMPARISON STUDY: Cervical spine radiographs dated 10/06/2015. TECHNIQUE: CT scan of the cervical spine is performed from the skull base to the upper thoracic spine. Images are reviewed in the axial, sagittal, and coronal planes. IV contrast was not administered for this examination. A dose lowering technique was utilized adhering to the principles of ALARA. FINDINGS: Skeletal structures: The skeletal structures are osteopenic. There is no evidence of fracture or subluxation involving the cervical spine. Vertebral body height is maintained. There is minimal anterolisthesis at C3-C4, C4-C5, and C7- T1. Alignment is otherwise preserved. There is straightening of the cervical lordosis. Anterior osteophytes are seen throughout. The odontoid process and lateral masses are intact. The atlantoaxial articulation is preserved noting advanced productive degenerative change. The spinous processes appear intact. There is moderate multilevel cervical spondylosis. Uncovertebral and facet arthropathy contribute to neural foraminal narrowing at several levels. Intervertebral discs: There is moderate to severe disc space narrowing at C5-C6 and C6-C7 with associated endplate sclerosis. Mild narrowing is seen at the remaining cervical levels. Central canal: Posterior disc osteophyte complexes at C5-C6 and C6-C7 likely contribute to acquired compromise of the central canal. Soft tissues: The prevertebral and paraspinous soft tissues are within normal limits. There is atherosclerotic calcification of the carotid bulbs. Calvarium: The visualized calvarium at the skull base appears intact. Brain parenchyma: Partially visualized brain parenchyma at the skull base is within normal limits. Sinuses and mastoids: There is trace mucosal thickening within the maxillary antra. The mastoid air cells are well pneumatized. Cerumen is noted in the right external auditory canal. Lung apices: Clear as visualized. IMPRESSION: 1. There is no evidence of cervical spine fracture or subluxation. 2. Osteopenia and spondylotic change as above. ACT 112: Negative or not required by law. Electronically signed by: Young Batista M.D. 09/10/2023 5:[address] 09/10/23 15:46 CT SCAN OF THE BRAIN WITHOUT IV CONTRAST CLINICAL HISTORY: Fall. COMPARISON STUDY: MRI of the brain dated 05/28/2013. TECHNIQUE: Unenhanced axial CT scan of the brain is performed from the vertex to the skull base. A dose lowering technique was utilized adhering to the principles of ALARA. FINDINGS: Brain parenchyma: There is age-related involutional change noting moderate subcortical and periventricular microangiopathic disease. There is no hemorrhage, mass effect, or evidence of acute territorial ischemia by CT criteria. Phan-white matter differentiation is preserved. No extra-axial fluid collection is seen. Ventricles, sulci, cisterns: Prominent secondary to involutional change. Intracranial vasculature: There is atherosclerotic calcification of the cavernous carotid and vertebral artery. Calvarium: The skeletal structures are osteopenic. No depressed calvarial fracture is seen. Sinuses and mastoids: The visualized paranasal sinuses are clear. The mastoid air cells are well pneumatized. Orbits: The bony orbits are grossly intact. There are bilateral ocular lens implants. IMPRESSION: There is no hemorrhage, mass effect, or evidence of acute territorial ischemia by CT criteria. ACT 112: Negative or not required by law. Electronically signed by: Young Batista M.D. 09/10/2023 5:[address] 09/10/23 15:46 CT SCAN OF THE PELVIS WITHOUT IV CONTRAST; CT SCAN OF THE LEFT HIP WITHOUT IV CONTRAST CLINICAL HISTORY: Fall. Pelvic pain. Left hip pain. COMPARISON STUDY: Radiographs of the left hip and bony pelvis dated 09/10/2023. Pelvic CT dated 01/22/2023. TECHNIQUE: CT scan of the pelvis was performed from the pelvic inlet to the proximal femora and CT scan of the left hip was performed from the bony pelvis to the femoral shaft. Images for both examinations are reviewed in the axial, sagittal, and coronal planes. IV contrast was not administered for these examinations. A dose lowering technique was utilized adhering to the principles of ALARA. FINDINGS: The skeletal structures are osteopenic. Again seen are acute, comminuted, and mildly displaced fracture of the left superior and inferior pubic rami with surrounding hemorrhage. The superior pubic rami fracture involves the anterior wall of the left acetabulum. There is likely a subtle nondisplaced fracture of the left sacral ala. The remainder of the bony pelvis appears intact. The proximal femora are maintained. There is no avascular necrosis of the femoral heads. No lytic or blastic lesion is seen. Spondylotic change is noted in the lower lumbar spine. Intramuscular hemorrhage is seen within the left obturator internus. There is trace intrapelvic extraperitoneal hemorrhage. There is also trace retroperitoneal hemorrhage along the anterior a spect of the psoas muscle. The prostate gland is enlarged and heterogeneous. The bladder is distended, and the wall is thickened/trabeculated indicating chronic outlet obstruction. There are bilateral fat-containing groin hernias. 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 Imaged portions of the bowel shows no evidence of obstruction. There is diverticulosis of the imaged colon without CT evidence of acute diverticulitis. No intraperitoneal free air or ascites is seen in the pelvis. IMPRESSION: 1. Again seen are comminuted left pubic rami fractures as above. The superior pubic rami fracture involves the anterior wall of the acetabulum. 2. There is likely a subtle nondisplaced fracture of the left sacral ala. 3. The proximal femora appear intact. 4. There is hemorrhage around the fracture sites, as well as intramuscular hemorrhage within the left obturator internus. 5. There is trace retroperitoneal hemorrhage seen along the anterior aspect of the left psoas muscle. 6. 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 This was better assessed on the 01/22/2023 CT angiogram. 7. Additional findings as above. ACT 112: Negative or not required by law. Dictated: 09/10/2023 5:27 PM Transcribed: 09/10/2023 6:09 PM Theo [id number] KAVEH_Rishi [id number] Electronically signed by: Young Batista M.D. 09/10/2023 6:[address] 09/10/23 15:46 CT SCAN OF THE PELVIS WITHOUT IV CONTRAST; CT SCAN OF THE LEFT HIP WITHOUT IV CO NTRAST CLINICAL HISTORY: Fall. Pelvic pain. Left hip pain. COMPARISON STUDY: Radiographs of the left hip and bony pelvis dated 09/10/2023. Pelvic CT dated 01/22/2023. TECHNIQUE: CT scan of the pelvis was performed from the pelvic inlet to the proximal femora and CT scan of the left hip was performed from the bony pelvis to the femoral shaft. Images for both examinations are reviewed in the axial, sagittal, and coronal planes. IV contrast was not administered for these examinations. A dose lowering technique was utilized adhering to the principles of ALARA. FINDINGS: The skeletal structures are osteopenic. Again seen are acute, comminuted, and mildly displaced fracture of the left superior and inferior pubic rami with surrounding hemorrhage. The superior pubic rami fracture involves the anterior wall of the left acetabulum. There is likely a subtle nondisplaced fracture of the left sacral ala. The remainder of the bony pelvis appears intact. The proximal femora are maintained. There is no avascular necrosis of the femoral heads. No lytic or blastic lesion is seen. Spondylotic change is noted in the lower lumbar spine. Intramuscular hemorrhage is seen within the left obturator internus. There is trace intrapelvic extraperitoneal hemorrhage. There is also trace retroperitoneal hemorrhage along the anterior aspect of the psoas muscle. The prostate gland is enlarged and heterogeneous. The bladder is distended, and the wall is thickened/trabeculated indicating chronic outlet obstruction. There are bilateral fat-containing groin hernias. 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 Imaged portions of the bowel shows no evidence of obstruction. There is diverticulosis of the imaged colon without CT evidence of acute diverticulitis. No intraperitoneal free air or ascites is seen in the pelvis. IMPRESSION: 1. Again seen are comminuted left pubic rami fractures as above. The superior pubic rami fracture involves the anterior wall of the acetabulum. 2. There is likely a subtle nondisplaced fracture of the left sacral ala. 3. The proximal femora appear intact. 4. There is hemorrhage around the fracture sites, as well as intramuscular hemorrhage within the left obturator internus. 5. There is trace retroperitoneal hemorrhage seen along the anterior aspect of the left psoas muscle. 6. 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 This was better assessed on the 01/22/2023 CT angiogram. 7. Additional findings as above. ACT 112: Negative or not required by law. Dictated: 09/10/2023 5:27 PM Transcribed: 09/10/2023 6:09 PM Theo [id number] KAVEH_Rishi [id number] Electronically signed by: Young Batista M.D. 09/10/2023 6:[address] 09/10/23 15:58 CT SCAN OF THE LUMBAR SPINE WITHOUT IV CONTRAST CLINICAL HISTORY: Recent fall. Known pelvic fractures. COMPARISON STUDY: Abdominal CT dated 01/22/2023. TECHNIQUE: CT scan of the lumbar spine was performed from the lower thoracic spine to the sacrum. Images are reviewed in the axial, sagittal, and coronal planes. IV contrast was not administered for this examination. A dose lowering technique was utilized adhering to the principles of ALARA. CT DOSE: 2761.1 mGy.cm FINDINGS: The skeletal structures are osteopenic. There is no evidence of acute fracture or malalignment involving the lumbar spine. Vertebral body height is maintained. There is minimal anterolisthesis at L5-S1. Alignment is otherwise preserved. Hyperlordosis is noted. Anterior and lateral marginal osteophytes are seen throughout. The transverse and spinous processes are intact. There is no spondylolysis. No lytic or blastic lesion is seen. Facet arthropathy is noted in the lower lumbar region. There is moderate disc space narrowing at L5-S1. Mild disc space narrowing is seen at the remaining lumbar levels. Posterior disc osteophyte complexes are noted at all lumbar levels. There is no CT evidence of high-grade central canal stenosis. There is likely a subtle nondisplaced fracture of the left sacral ala. Degenerative sclerosis is noted in the sacroil iac joints. There is fatty atrophy of the paraspinous musculature. Trace retroperitoneal hemorrhage is seen anterior to the distal left psoas muscle. There is advanced atherosclerotic calcification of the abdominal aorta. 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 IMPRESSION: 1. There is no evidence of fracture or malalignment involving the lumbar spine. 2. Osteopenia and spondylotic change as above. 3. There is likely a subtle nondisplaced fracture of the left sacral ala. 4. Trace retroperitoneal hemorrhage is seen along the inferior aspect of the left psoas muscle. 5. 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 These were better assessed on the 01/22/2023 CT angiogram. ACT 112: Negative or not required by law. Dictated: 09/10/2023 5:38 PM Transcribed: 09/10/2023 6:01 PM Theo [id number] KAVEH_Rishi [id number] Electronically signed by: Young Batista M.D. 09/10/2023 6:43 PM (1) Closed fracture of left superior pubic ramus Encounter type: subsequent encounter Fracture healing: with routine healing Qualified Code(s): S32.512D - Fracture of superior rim of left pubis, subsequent encounter for fracture with routine healing (2) Fall Encounter type: initial encounter Qualified Code(s): W19.XXXA - Unspecified fall, initial encounter
[2023-09-11 07:39] LABS: Basophils # (auto) 0.04 K/uL (0.00-0.20); Basophils % (auto) 0.4 %; Eosinophils # (auto) 0.13 K/uL (0.00-0.50); Eosinophils % (auto) 1.2 %; Hematocrit (blood only) 35.9 % (42.0-52.0); Hemoglobin 11.8 g/dl (14.0-18.0); Immature Granulocytes # (auto) 0.07 K/uL (0.01-0.20); Immature Granulocytes % (auto) 0.7 %; Lymphocytes # (auto) 1.72 K/uL (1.20-3.40); Lymphocytes % (auto) 16.4 %; Mean Corpuscular Hemoglobin 31.2 pg (25.0-34.0); Mean Corpuscular Hgb Conc 32.9 g/dL (32.0-36.0); Mean Platelet Volume 8.6 fL (9.4-12.4); Monocytes # (auto) 1.08 K/uL (0.11-0.59); Monocytes % (auto) 10.3 %; Neutrophils # (auto) 7.44 K/uL (1.40-6.50); Platelet Count 196 K/uL (130-400); RDW Standard Deviation 44.9 fL (36.4-46.3); Red Blood Count 3.78 M/uL (4.70-6.10); White Blood Count 10.48 K/ul (4.8-10.8)
[2023-09-11 08:00] LABS: BUN Creatinine Ratio 18.8 (10-20); Creatinine Clr Calc Pharmacy 44.8 ml/min; Est GFR (Non-African American) 56.1 ml/min
[2023-09-11] MEDS: ROSUVASTATIN CALCIUM 20 MG TAB PO SCH (08:21)
[2023-09-11] MEDS: POLYETHYLENE (MIRALAX) 17 GM PACK PO SCH ×2 (08:21→20:36)
[2023-09-11] MEDS: TAMSULOSIN HCL 0.4 MG CAP PO SCH (08:21)
[2023-09-11] MEDS: PANTOprazole 40 MG TAB PO SCH (08:22)
[2023-09-11] MEDS: HYDROmorphone INJ 0.5 MG/0.5 ML SYR IV PRN (09:24)
[2023-09-11] MEDS ORDERED: bisacodyL 10 MG SUPP PR PRN (16:49)
--- NOTE | 2023-09-11 16:58 | Hospitalist Progress Note ---
Date of Service September 11, 2023 Assessment & Plan (1) Closed fracture of pubic ramus: Plan: Patient fell backwards down stairs (approximately 4 steps) while ascending on 09/07 Worsening left hip pain with movement since then Hip/pelvic x-ray revealed acute mildly displaced left pelvic ring fractures Head, C-spine, left hip, lumbar spine, and pelvic CTs show left inf and sup ramus fractures into left acetabulum, some trace RP bleeding anterior to psoas and also IM hemorrhage in internus obturator muscle Hgb stable Seen by Ortho-weight bear as tolerated, pain control, f/u with Ortho in 2-3 weeks Make tylenol scheduled 1000mg tid continue IV dilaudid prn severe breakthrough pain, add oxycodone 5mg po q4h prn mod-severe pain Follow CBC, BMP in AM (2) Ambulatory dysfunction: Plan: PT/OT evaluations appreciated; left weightbearing as tolerated Fall precautions Case management consulted for rehab upon discharge-plan for [facility] (3) Elevated troponin: Plan: Troponin 27.4 on arrival, repeat same Clinically, patient denies chest pain, SOB, or pleuritic CP Continuous telemetry monitoring only with ectopy ECG no ischemic changes (4) Alcohol use: Plan: Patient reports that he drinks 4+ drinks daily Denies history of alcohol withdrawal or seizures AWSS at risk protocol with Ativan as needed (5) High cholesterol: Plan: Continue rosuvastatin Plan Disposition: continued stay on med tele, likely dc to rehab tomorrow if stable and pain controlled better DNR/DNI DVT PPx: add SCDs only given RP hemorrhage. If hgb stable tomorrow, can start Lovenox Admission and Anticipated Discharge Date Admission Date: September 10, 2023 Subjective Pt reports having pain in left hip with any movement and constipation. Tele with NSR, PACs, PJCs, a few small runs of PAT Physical Exam Constitutional: WD/WN, vitals as above Respiratory: normal respiratory effort, lungs clear to auscultation Cardiovascular: RRR, no murmur, no edema Gastrointestinal (Abdomen): normal bowel sounds, soft, nontender, no hepatosplenomegaly Musculoskeletal: left pelvis with pain to palpation, small bruise left lateral hip Skin: Trauma: + abrasion (left elbow,left knee) Genitourinary: Haynes in place Results & Data Results & Data Vital Signs (Past 12 Hours) Vital Signs Temp Pulse Pulse Resp BP BP Pulse Ox 09/11/23 14:46 36.9 C 80 18 118/64 91 09/11/23 14:01 94 H 09/11/23 11:14 36.6 C 83 18 108/71 92 09/11/23 09:29 09/11/23 07:12 36.6 C 69 16 118/68 97 09/11/23 07:00 67 O2 Del Method 09/11/23 14:46 Room Air 09/11/23 14:01 09/11/23 11:14 Room Air 09/11/23 09:29 Room Air 09/11/23 07:12 Room Air 09/11/23 07:00 Laboratory Results CBC, BMP, troponin reviewed PG Care Time/CCT Total # of Minutes Spent Total Time Spent with Patient: Total time spent is greater than 50% in coordination of care (as documented) at patient's floor/unit and/or counseling patient: Coding Level of Care Code 89316 SUB INP/OBS CARE 2/35MIN Diagnoses Closed fracture of pubic ramus S32.592A Encounter type: initial encounter Laterality: left Ambulatory dysfunction R26.2 Elevated troponin R79.89 Alcohol use Z78.9 High cholesterol E78.00 (1) Closed fracture of pubic ramus Encounter type: initial encounter Laterality: left Qualified Code(s): S32.592A - Other specified fracture of left pubis, initial encounter for closed fracture
[2023-09-11] MEDS: DOCUSATE SODIUM/SENNA 50/8.6MG TAB PO SCH (17:44)
[2023-09-11] MEDS: oxyCODONE HCL IR 5 MG TAB (IMMEDIATE RELEASE) PO PRN (18:44)
[2023-09-11] MEDS: ACETAMINOPHEN 500 MG TAB PO SCH (20:36)
[2023-09-12 07:22] LABS: Basophils # (auto) 0.07 K/uL (0.00-0.20); Basophils % (auto) 0.7 %; Eosinophils # (auto) 0.26 K/uL (0.00-0.50); Eosinophils % (auto) 2.6 %; Hematocrit (blood only) 33.8 % (42.0-52.0); Immature Granulocytes # (auto) 0.06 K/uL (0.01-0.20); Immature Granulocytes % (auto) 0.6 %; Lymphocytes # (auto) 2.13 K/uL (1.20-3.40); Lymphocytes % (auto) 21.5 %; Mean Corpuscular Hgb Conc 32.5 g/dL (32.0-36.0); Mean Corpuscular Volume 95.2 fL (80.0-100.0); Mean Platelet Volume 8.6 fL (9.4-12.4); Monocytes # (auto) 1.06 K/uL (0.11-0.59); Monocytes % (auto) 10.7 %; Neutrophils # (auto) 6.32 K/uL (1.40-6.50); Neutrophils % (auto) 63.9 %; Platelet Count 221 K/uL (130-400); RDW Standard Deviation 45.5 fL (36.4-46.3); Red Blood Count 3.55 M/uL (4.70-6.10)
[2023-09-12 07:53] LABS: BUN Creatinine Ratio 16.4 (10-20); Calcium 8.9 mg/dl (8.6-10.3); Creatinine Clr Calc Pharmacy 35.7 ml/min; Est GFR (African American) 55.2 ml/min; Est GFR (Non-African American) 47.6 ml/min; Potassium 4.1 mmol/L (3.5-5.1)
--- NOTE | 2023-09-12 12:01 | Discharge Summary ---
Discharge Summary Date of Service September 12, 2023 Principal Dx & Hospital Course #1 = Principal Diagnosis (1) Closed fracture of pubic ramus: Patient fell backwards down stairs (approximately 4 steps) while ascending on 09/07 Worsening left hip pain with movement since then Hip/pelvic x-ray revealed acute mildly displaced left pelvic ring fractures Head, C-spine, left hip, lumbar spine, and pelvic CTs show left inf and sup ramus fractures into left acetabulum, some trace RP bleeding anterior to psoas and also IM hemorrhage in internus obturator muscle Hgb stable at 11.0 Seen by Ortho-weight bear as tolerated, pain control, f/u with Ortho in 2-3 weeks Continue tylenol scheduled 1000mg tid continue oxycodone 5mg po q4h prn mod-severe pain Follow CBC in 3 days at rehab (2) Ambulatory dysfunction: PT/OT evaluations appreciated; left weightbearing as tolerated Fall precautions Case management consulted for rehab upon discharge-plan for [facility] (3) Elevated troponin: Demand ischemia Troponin 27.4 on arrival, repeat same Clinically, patient denies chest pain, SOB, or pleuritic CP Continuous telemetry monitoring only with ectopy ECG no ischemic changes (4) Alcohol use: Patient reports that he drinks 4+ drinks daily Denies history of alcohol withdrawal or seizures No ativan needed here continue thiamine, MVI and folic acid (5) High cholesterol: Continue rosuvastatin Plan Disposition: dc to rehab DNR/DNI DVT PPx: SCDs only given RP hemorrhage. If hgb stable on checkin 3 days, can start Lovenox SQ x 2 weeks until more mobile Notes For Next Care Provider Check CBC in 3 days Start Lovenox for DVT proph if hgb stable Medication Changes From Visit Added Tylenol 1000mg po tid Added Miralax and senna/docusate Admission HPI Per Admitting Provider Orlin is an 88-year-old male with PMH of nocturia, BPH, pyloric stenosis, HTN, and high cholesterol. He presented via EMS for intractable pain for ambulatory dysfunction on 09/09. He initially fell backwards while ascending a flight of steps on his back deck on 09/07. Patient fell backwards down approximately 4 steps. He denies head strike, LOC. He struck his left elbow, hip, and knee. He reports he is not on blood thinners. He endorses 10/10 pain with all movements in the left hip. Pain radiates down the left leg to the knee. He is required help with sitting up, standing, and getting out of bed; has difficulty getting to the bathroom. Patient has been taking oxycodone 5 mg every 8 hours for the pain. He characterizes the pain as a sharp, stabbing pain. He denies any pain on his right side. No prior injuries to the left hip, or surgery/hardware placement. He has not had a fall since 09/07. Patient does not use ambulatory assist devices at baseline, but has been using a walker/wheelchair over the past couple days; as well as a commode for the bathroom. Patient's daughter has been living with him for the past couple days to assist with the pelvic fracture. Patient is a former tobacco cigarette smoker but quit in 1980. He does endorse frequent alcohol use; 4 drinks daily; 1 beer with lunch and Chardonnay/play measures throughout the day. He denies history of alcohol withdrawal or seizures. Patient reports he took all of his regular morning medications today; no recent change in medications. Patient's vitals are stable at time of admission. ED course: Morphine sulfate 4 mg IV Zofran 4 mg IV ROS: Patient endorses lightheadedness with standing (ongoing x 1 year), constipation, frequent urination (which patient attribute to enlarged prostate), left hip pain rad down to the knee, Patient denies fever, chills, night-sweats, POE, changes in vision, chest pain, SOB, chest palpitations, pleuritic CP, cough, abdominal pain, N/V/D, change in urinary/bowel habits, saddle anesthesia, melena, blood in the urine/stool, or numbness/tingling in the left lower leg. Discharge Exam Constitutional WD/WN, vitals as above Respiratory normal respiratory effort, lungs clear to auscultation Cardiovascular RRR, no murmur, no edema Gastrointestinal (Abdomen) normal bowel sounds, soft, nontender, no hepatosplenomegaly Skin Trauma: + abrasion (left elbow,left knee) Updated Medication List Medication Instructions Recorded Confirmed Type omeprazole 20 mg capsule,delayed 20 mg PO DAILY 12/20/18 09/10/23 History release melatonin 5 mg capsule 5 mg PO HS PRN Sleep 10/18/21 09/10/23 History rosuvastatin 20 mg tablet 20 mg PO DAILY 10/18/21 09/10/23 History silodosin 8 mg capsule 8 mg PO DAILY #90 caps 06/22/23 09/10/23 Rx tadalafil 5 mg tablet 20 mg (4 x 5 mg) PO DAILY PRN 06/22/23 09/10/23 Rx sexual activity #30 tabs cholecalciferol (vitamin D3) 25 0 mcg PO DAILY 09/10/23 09/10/23 History mcg (1,000 unit) capsule (Vitamin D3) cyanocobalamin (vitamin B-12) 1,000 mcg PO DAILY 09/10/23 09/10/23 History 1,000 mcg tablet (Vitamin B-12) thiamine HCl (vitamin B1) 100 mg 100 mg PO DAILY 09/10/23 09/10/23 History tablet (Vitamin B-1) vit C 250 mg-vit E 90 mg-zinc 40 1 tab PO BID 09/10/23 09/10/23 History mg-copper 1 [id number] capsule (PreserVision AREDS-2) acetaminophen 500 mg tablet 1,000 mg (2 x 500 mg) PO TID #60 09/12/23 Rx (Tylenol Extra Strength) tabs folic acid 1 mg tablet 1 mg PO DAILY #30 tabs 09/12/23 Rx oxycodone 5 mg tablet 5 mg PO Q4H PRN moderate-severe 09/12/23 09/10/23 Rx pain #10 tabs polyethylene glycol 3350 17 gram 17 g PO BID #30 ea 09/12/23 Rx oral powder packet (Miralax) sennosides 8.6 mg-docusate sodium 1 tab PO QAM #30 tabs 09/12/23 Rx 50 mg tablet (Senokot-S) Hospital Stay Data Consultations 09/10/23 15:09 ED Decision to Admit Stat 09/10/23 15:31 Consult Orthopedic Surgery Routine Diagnostic Imagining Performed 09/10/23 15:46 CT cervical spine wo con Stat CT hip LT wo con Stat CT pelvis wo con Stat Head CT [CT head/brain wo con] Stat 09/10/23 15:58 CT lumbar spine wo con Stat Pending Results Patient Have Any Pending Studies at Discharge: No Discharge Instructions Given to Patient (Per Discharging Provider) You were admitted for difficulty with walking from a pelvic fracture. Your pain can be controlled with tylenol and oxycodone. Please continue the laxatives for your constipation. You had your Haynes catheter removed and the nurses at the rehab will make sure you are able to urinate. Please check a CBC in 3 days to ensure blood count remains stable given the small amount of bleeding you had from the fractures. Total Time Total Time Spent Total Time Spent (In Minutes): 35 min Total Time Includes: Examination of the Patient, Discharge Planning and Medication Reconciliation Coding Level of Care Code 65710 INP/OBS DISCH >30 MIN Diagnoses Closed fracture of pubic ramus S32.592A Encounter type: initial encounter Laterality: left Ambulatory dysfunction R26.2 Elevated troponin R79.89 Alcohol use Z78.9 High cholesterol E78.00
== END 2023-09-12 12:29 | DRG 536 ==
LOC: ED 12:59 → SUATTDRO 15:39 → EDINP 15:39 → 2N 18:17